=== PATIENT | male | born 1990 | race Two or more races ===

== ENCOUNTER 2018-06-02 18:53 | Emergency (ER) | payer BC ==
[2018-06-02] MEDS ORDERED: Sodium Chloride 0.9% 1,000 ML IV ONE (20:07)
--- NOTE | 2018-06-02 20:18 | EDM.PDOC ---
ED HPI GENERAL MEDICAL PROBLEM - General Chief Complaint: Gastrointestinal Problem Stated Complaint: PT HAS MIGRAINE Time Seen by Provider: 06/02/18 20:01 - History of Present Illness INITIAL COMMENTS - FREE TEXT/NARRATIVE: HISTORY AND PHYSICAL: History of present illness: Patient 28-year-old white male presents with concern of generalized weakness vomiting diarrhea last 24 hours he denies fever chills he's had body aches. He denies shortness of breath or cough Review of systems: As per history of present illness and below otherwise all systems reviewed and negative. Past medical history: As per history of present illness and as reviewed below otherwise noncontributory. Surgical history: As per history of present illness and as reviewed below otherwise noncontributory. Social history: No reported history of drug or alcohol abuse. Family history: As per history of present illness and as reviewed below otherwise noncontributory. Physical exam: HEENT: Atraumatic, normocephalic, pupils reactive, negative for conjunctival pallor or scleral icterus, mucous membranes moist, throat clear, neck supple, nontender, trachea midline. Lungs: Clear to auscultation, breath sounds equal bilaterally, chest nontender. Heart: S1S2, regular, negative for clicks, rubs, or JVD. Abdomen: Soft, nondistended, nontender. Negative for masses or hepatosplenomegaly. Negative for costovertebral tenderness. Pelvis: Stable nontender. Genitourinary: Deferred. Rectal: Deferred. Extremities: Atraumatic, negative for cords or calf pain. Neurovascular unremarkable. Neuro: Awake, alert, oriented. Cranial nerves II through XII unremarkable. Cerebellum unremarkable. Motor and sensory unremarkable throughout. Exam nonfocal. Diagnostics: CBC CMP lipase stool for C&S O&P C. difficile influenza screen Therapeutics: Saline 1 L bolus Zofran 4 mg IV Impression: #1 gastroenteritis #2 probable viral syndrome Definitive disposition and diagnosis as appropriate pending reevaluation and review of above. Body aches Pain Score (Numeric/FACES): 5 - Related Data Allergies Allergy/AdvReac Type Severity Reaction Status Date / Time No Known Allergies Allergy Verified 06/02/18 19:41 Home Meds: Home Meds Dextroamphetamine/Amphetamine [Adderall 20 mg Tablet] 20 mg PO DAILY 06/01/18 [ History] Past Medical History Psychiatric History: Reports: ADHD Social & Family History - Family History Family Medical History: Noncontributory - Tobacco Use Smoking Status *Q: Never Smoker Second Hand Smoke Exposure: No - Caffeine Use Caffeine Use: Reports: Energy Drinks - Recreational Drug Use Recreational Drug Use: No ED ROS GENERAL - Review of Systems Review Of Systems: ROS reveals no pertinent complaints other than HPI. ED EXAM, GENERAL - Physical Exam Exam: See Below (See dictation) Course - Vital Signs Last Recorded V/S: Last Vital Signs Temp 38.0 C 06/02/18 19:41 Pulse 108 H 06/02/18 19:41 Resp 18 06/02/18 19:41 BP 131/71 06/02/18 19:41 Pulse Ox 96 06/02/18 19:41 - Orders/Labs/Meds Orders: Active Orders 24 hr Category Date Time Status CDIFF TOX A+B [OP] Stat Lab 06/02/18 20:19 Ordered COMPREHENSIVE METABOLIC PN,CMP [CHEM] Stat Lab 06/02/18 20:16 Received CULTURE STOOL + CAMPY+SHIGATOX [RM] Stat Lab 06/02/18 20:06 Ordered LIPASE [CHEM] Stat Lab 06/02/18 20:16 Received Labs: Laboratory Tests 06/02/18 06/02/18 Range/Units 20:16 20:21 WBC 8.17 (4.0-11.0) K/uL RBC 4.90 (4.50-5.90) M/uL Hgb 15.8 (13.0-17.0) g/dL Hct 44.8 (38.0-50.0) % MCV 91.4 (80.0-98.0) fL MCH 32.2 H (27.0-32.0) pg MCHC 35.3 (31.0-37.0) g/dL RDW Std Deviation 43.4 (28.0-62.0) fl RDW Coeff of Laura 13 (11.0-15.0) % Plt Count 108 L (150-400) K/uL MPV 11.30 (7.40-12.00) fL Neut % (Auto) 74.1 (48.0-80.0) % Lymph % (Auto) 12.7 L (16.0-40.0) % Crane % (Auto) 12.9 (0.0-15.0) % Eos % (Auto) 0.2 (0.0-7.0) % Baso % (Auto) 0.1 (0.0-1.5) % Neut # (Auto) 6.1 H (1.4-5.7) K/uL Lymph # (Auto) 1.0 (0.6-2.4) K/uL Crane # (Auto) 1.1 H (0.0-0.8) K/uL Eos # (Auto) 0.0 (0.0-0.7) K/uL Baso # (Auto) 0.0 (0.0-0.1) K/uL Nucleated RBC % 0.0 /100WBC Nucleated RBCs # 0 K/uL Urine Color YELLOW Urine Appearance CLEAR Urine pH 6.0 (5.0-8.0) Ur Specific Waterman >= 1.030 (1.001-1.035) Urine Protein 30 H (NEGATIVE) mg/dL Urine Glucose (UA) NEGATIVE (NEGATIVE) mg/dL Urine Ketones 15 H (NEGATIVE) mg/dL Urine Occult Blood NEGATIVE (NEGATIVE) Urine Nitrite NEGATIVE (NEGATIVE) Urine Bilirubin SMALL H (NEGATIVE) Urine Ictotest NEGATIVE Urine Urobilinogen 0.2 (<2.0) EU/dL Ur Leukocyte Esterase NEGATIVE (NEGATIVE) Urine RBC NONE SEEN (0-2/HPF) Urine WBC 0-1 (0-5/HPF) Ur Epithelial Cells RARE (NONE-FEW) Urine Bacteria FEW (NEGATIVE) Urine Mucus LIGHT (NONE-MOD) Meds: Medications Discontinued Medications Generic Name Dose Route Start Last Admin Trade Name Freq PRN Reason Stop Dose Admin Sodium Chloride 1,000 mls @ 999 mls/hr 06/02/18 20:07 06/02/18 20:23 Normal Saline IV 06/02/18 21:07 999 mls/hr STAT ONE Administration Ondansetron HCl 4 mg 06/02/18 20:19 06/02/18 20:24 Zofran IVPUSH 06/02/18 20:20 4 mg ONETIME ONE Administration Departure - Departure Time of Disposition: 21:09 Disposition: Home, Self-Care 01 Condition: Good Clinical Impression: Diarrhea, Dehydration - Discharge Information Referrals: PCP,None [Primary Care Provider] - Forms: ED Department Discharge Additional Instructions: The following information is given to patients seen in the emergency department who are being discharged to home. This information is to outline your options for follow-up care. We provide all patients seen in our emergency department with a follow-up referral. The need for follow-up, as well as the timing and circumstances, are variable depending upon the specifics of your emergency department visit. If you don't have a primary care physician on staff, we will provide you with a referral. We always advise you to contact your personal physician following an emergency department visit to inform them of the circumstance of the visit and for follow-up with them and/or the need for any referrals to a consulting specialist. The emergency department will also refer you to a specialist when appropriate. This referral assures that you have the opportunity for followup care with a specialist. All of these measure are taken in an effort to provide you with optimal care, which includes your followup. Under all circumstances we always encourage you to contact your private physician who remains a resource for coordinating your care. When calling for followup care, please make the office aware that this follow-up is from your recent emergency room visit. If for any reason you are refused follow-up, please contact the [facility] emergency department at and asked to speak to the emergency department charge nurse. Push fluids clear liquids as discussed avoid dairy 72 hours return as needed as discussed - My Orders Last 24 Hours: My Active Orders 06/02/18 20:06 CULTURE STOOL + CAMPY+SHIGATOX [RM] Stat 06/02/18 20:16 COMPREHENSIVE METABOLIC PN,CMP [CHEM] Stat LIPASE [CHEM] Stat 06/02/18 20:19 CDIFF TOX A+B [OP] Stat - Assessment/Plan Last 24 Hours: My Active Orders 06/02/18 20:06 CULTURE STOOL + CAMPY+SHIGATOX [RM] Stat 06/02/18 20:16 COMPREHENSIVE METABOLIC PN,CMP [CHEM] Stat LIPASE [CHEM] Stat 06/02/18 20:19 CDIFF TOX A+B [OP] Stat
[2018-06-02] MEDS ORDERED: Ondansetron 4 MG/2 ML SDV IVPUSH ONE (20:19)
--- NOTE | 2018-06-02 21:09 | CR ---
Indication: Abdominal pain Technique: Frontal view chest, supine and upright views abdomen Comparison: None Findings: : Normal cardiomediastinal silhouette. Minimal linear atelectasis or scarring at the right lung base. No effusion or pneumothorax. No focal consolidation. Nonspecific bowel gas pattern. No free air or pneumatosis. No evidence for bowel obstruction. No abnormal calcification. Osseous structures intact. Impression: : No acute abnormality. Dictated by Odette Navarrete MD @ Jun 02 2018 9:06PM Signed by Dr. Odette Navarrete @ Jun 02 2018 9:08PM
[2018-06-02 21:13] LABS: CHLORIDE,CL 104 mmol/L (98-107); SODIUM,NA 140 mmol/L (136-148)
== END 2018-06-02 21:21 | disposition home or self-care (01) ==
LOC: MW.ED 18:53
DX: K52.9 Noninfective gastroenteritis and colitis, unspecified (principal); E86.0 Dehydration; F90.9 Attention-deficit hyperactivity disorder, unspecified type; Z79.899 Other long term (current) drug therapy
CPT/HCPCS: 36415; 74022; 80053; 81001; 83690; 85025; 87804; 96361; 96374; 99283; J2405; J7040

== ENCOUNTER 2021-04-05 14:20 | Emergency (ER) | payer BC ==
[2021-04-05] MEDS ORDERED: Morphine 4 MG/ML VIAL IM ONE (15:34)
[2021-04-05] MEDS ORDERED: Ondansetron 4 MG/2 ML SDV IVPUSH ONE (15:34)
[2021-04-05] MEDS ORDERED: Morphine 4 MG/ML VIAL IVPUSH ONE (15:41)
[2021-04-05] MEDS ORDERED: Sodium Chloride 0.9% 1,000 ML IV ONE (16:20)
[2021-04-05] MEDS ORDERED: Diazepam 5 MG Tab PO ONE (16:55)
[2021-04-05] MEDS ORDERED: Ketorolac 30 MG/ML SDV IVPUSH ONE (16:55)
== END 2021-04-05 17:50 | disposition home or self-care (01) ==
LOC: MW.ED 14:20
DX: S13.4XXA Sprain of ligaments of cervical spine, initial encounter (principal); W17.89XA Other fall from one level to another, initial encounter; Y93.44 Activity, trampolining
CPT/HCPCS: 70450; 71045; 72125; 96374; 96375; 99283; A9270; J1885; J2270; J2405; J7030

== ENCOUNTER 2024-11-03 06:53 | Day surgery (SDC) | payer BC ==
[~2024-11-03 06:53] MED LIST: Albuterol 0.083% 2.5 MG/3 ML Neb Soln NEB PRN; Naloxone 0.4 MG/ML SDV IVPUSH PRN; Ondansetron 4 MG/2 ML SDV IVPUSH PRN; Sodium Chloride 0.9% 10 ML Syringe FLUSH PRN; Sodium Chloride 0.9% 2.5 ML Syringe FLUSH PRN; fentaNYL 50 MCG/ML SDV IVPUSH PRN
[2024-11-03] MEDS: Lactated Ringers 1,000 ML IV SCH (07:19)
[2024-11-03] MEDS ORDERED: Propofol 200 MG/20 ML SDV ONE (07:20)
[2024-11-03] MEDS ORDERED: fentaNYL 100 MCG/2 ML SDV ONE (07:20)
[2024-11-03] MEDS ORDERED: Midazolam 1 MG/ML 2 ML SDV ONE (07:21)
[2024-11-03] MEDS ORDERED: Dexamethasone 4 MG/ML 5 ML MDV ONE (08:18)
[2024-11-03] MEDS ORDERED: Ondansetron 4 MG/2 ML SDV ONE (08:18)
[2024-11-03] MEDS ORDERED: ePHEDrine 50 MG/ML SDV ONE (08:37)
== END 2024-11-03 10:37 | disposition home or self-care (01) ==
LOC: MW.SDS 06:53
PROVIDERS: ATTEND Surgery
DX: D17.1 Benign lipomatous neoplasm of skin and subcutaneous tissue of trunk (principal); D17.24 Benign lipomatous neoplasm of skin and subcutaneous tissue of left leg; E66.9 Obesity, unspecified; Z68.38 Body mass index [BMI] 38.0-38.9, adult; Z87.891 Personal history of nicotine dependence; Z79.899 Other long term (current) drug therapy
CPT/HCPCS: 21930; 21931; 22903; 27337; J0665; J0690; J1100; J2003; J2250; J2405; J2704; J3010; J7120; J7999; 00300; J2371; J3490